=== PATIENT | male | born 1970 | race Caucasian/White ===

== ENCOUNTER 2021-04-23 14:01 | Emergency (ER) | payer SELFPAY ==
[~2021-04-23] VITALS: Ht 172.7 cm; Wt 80.0 kg
[2021-04-23 19:19] VITALS: BP 134/96
== END 2021-04-23 19:23 | disposition home or self-care (01) ==
LOC: ER 14:01
DX: T40.601A Poisoning by unspecified narcotics, accidental (unintentional), initial encounter (principal); Y92.9 Unspecified place or not applicable; I11.9 Hypertensive heart disease without heart failure; F17.210 Nicotine dependence, cigarettes, uncomplicated
CPT/HCPCS: 99291; Z7610

== ENCOUNTER 2024-04-24 02:03 | Emergency (ER) | payer MEDICAID ==
[~2024-04-24] VITALS: Ht 170.2 cm; Wt 73.0 kg
[2024-04-24 02:11] VITALS: BP 161/106; PULSE 113; RESP 20; TEMP 99.4; O2SAT 99
[2024-04-24 03:35] LABS: HEMATOCRIT. 41.1 % (42.0-52.0); HEMOGLOBIN. 13.9 g/dL (14.0-18.0); MEAN CORPUSCULAR HEMOGLOBIN 33.1 pg (28.0-32.0); MEAN CORPUSCULAR HGB CONC 33.7 g/dL (31.0-37.0); MEAN PLATELET VOLUME 7.8 fl (7.4-10.4); PLATELET 189 x1000/uL (130-400); RED BLOOD CELL COUNT 4.19 mill/uL (4.7-6.1); RED CELL DISTRIBUTION WIDTH 13.4 % (11.6-14.6); WHITE BLOOD COUNT 10.8 x1000/uL (4.5-11.0)
[2024-04-24 03:43] LABS: POTASSIUM 3.9 mEq/L (3.5-5.1)
[2024-04-24 03:44] LABS: CALCIUM 9.5 mg/dL (8.7-10.4)
[2024-04-24 03:49] LABS: CREATININE 1.3 mg/dL (0.6-1.3)
[2024-04-24 03:55] LABS: DIFFERENTIAL COMMENT 1
[2024-04-24] MEDS ORDERED: IBUP-2029 MT (04:03)
[2024-04-24] MEDS ORDERED: SULF1TAB48 MT (04:03)
[2024-04-24] MEDS: IBUPROFEN 600MG TABLET PO ONE (04:43)
[2024-04-24] MEDS: SULFAMETHOXAZOLE/TRIMETHOPRIM 800/160MG TABLET PO ONE (04:47)
[2024-04-24] MEDS: IBUPROFEN 600MG TABLET PO NR (04:47)
[2024-04-24 07:25] LABS: PLATELET ESTIMATE NORMAL
== END 2024-04-24 04:56 | disposition home or self-care (01) ==
LOC: ER 02:03
DX: L02.414 Cutaneous abscess of left upper limb (principal); I10 Essential (primary) hypertension; F11.10 Opioid abuse, uncomplicated; Z00.00 Encounter for general adult medical examination without abnormal findings; Z86.73 Personal history of transient ischemic attack (TIA), and cerebral infarction without residual deficits; Z86.59 Personal history of other mental and behavioral disorders
CPT/HCPCS: 80048; 85025; 36415; 10060; 99283; Z7610 ×3